=== PATIENT | male | born 1970 | race Caucasian/White ===

== ENCOUNTER → 2016-03-18 | Outpatient (CLI) | payer OTHER ==
[~2016-03-18] MED LIST: DRIS50002 PO; GABA600T PO; LIDOCAINE 1% SDV INJ 30 ML VIAL As Ordered ONE; MELO7.5T6 PO; MIDAZOLAM INJ 2 MG/2 ML VIAL (J2250) As Ordered ONE; SULF500TA PO; VENL150C43 PO; VITA50TA43 PO; ZONI50CA3 PO; fentaNYL 100 MCG/2 ML INJECTION (J3010) As Ordered ONE
[2016-03-18 15:49] LABS: GLUCOSE CSF 61 MG/DL (40-75)
[2016-03-18 16:03] LABS: RBC CSF AUTO 1 /mm3 (0-0); WBC CSF AUTO 0 /mm3 (0-10)
[2016-03-18 16:05] LABS: APPEARANCE, CSF CLEAR (CLEAR); COLOR, CSF COLORLESS (COLORLESS); CSF DIFF IF INDICATED? NO (NO); CSF TUBE# CELL CNT TUBE 3
[2016-03-18 16:06] LABS: CSF DILUENT LOT # 6053
[2016-03-19 08:41] LABS: CSF GROUP B STREP NEGATIVE (NEGATIVE); CSF H. INFLUENZA NEGATIVE (NEGATIVE); CSF N MENINGITIDIS ACYW135 NEGATIVE (NEGATIVE); CSF STREP PNUEMO NEGATIVE (NEGATIVE)
--- NOTE | 2016-03-28 23:54 | ECWPNPC ---
PATIENT NAME: GERMAIN JIM : 1970 GENDER: MALE VISIT DATE: 03/18/2016 DISCHARGE DATE: 03/18/16 1534 VISIT LOCKED DATE TIME: PHYSICIAN: KHALIF HOOVER RESOURCE: KHALIF HOOVER REASON FOR APPOINTMENT 1. SPINAL TAP MS PROTOCOL CURRENT MEDICATIONS NONE ASSESSMENTS PSEUDOTUMOR CEREBRI. TREATMENT OTHERS NOTES: NOTES: SPINAL TAP WITH IV SEDATION - PLEASE SEE MEDITECH. PROCEDURE CODES 65067 MOD SED SAME PHYS/QHP EA FOLLOW UP F/UP WITH NEUROLOGIST/CALL NEEDED ELECTRONICALLY SIGNED BY KHALIF HOOVER MD ON 03/28/2016 AT 07:49 PM EST DISCLAIMER : THIS IS A VISIT SUMMARY EXTRACTED FROM THE [employer] CHART. IT IS NOT A COPY OF THE [employer] PROGRESS NOTE. MTDD
== END ==
LOC: M PAIN 13:00
PROVIDERS: ATTEND Anesthesiology
DX: G93.9 Disorder of brain, unspecified (principal)
CPT/HCPCS: 36415; 62270; 82784; 82945; 83916; 84157; 87015; 87070; 87102; 87205; 87252; 87802; 87899; 88108; 88313; 89050; 99152; 99153; J2250; J3010

== ENCOUNTER 2016-10-06 15:36 | Observation (INO) | payer OTHER ==
[~2016-10-06] VITALS: Ht 188 cm; Wt 118.7 kg
[~2016-10-06 15:36] MED LIST changes: -LIDOCAINE 1% SDV INJ 30 ML VIAL As Ordered ONE; -MELO7.5T6 PO; +MELO7.5T7 PO; -MIDAZOLAM INJ 2 MG/2 ML VIAL (J2250) As Ordered ONE; -fentaNYL 100 MCG/2 ML INJECTION (J3010) As Ordered ONE
[2016-10-06] MEDS ORDERED: COLA100C5 PO (16:00)
[2016-10-06] MEDS ORDERED: HALO0.052 TOP (16:00)
[2016-10-06] MEDS ORDERED: RANI15TA PO (16:00)
[2016-10-06] MEDS ORDERED: ASPI325T24 PO (16:00)
[2016-10-06] MEDS ORDERED: MULTCAP11 PO (16:00)
[2016-10-06] MEDS ORDERED: ALBU17IN INH (16:00)
--- NOTE | 2016-10-06 16:38 | REP ---
Head CT without contrast: History: CVA. Comparison study: October 25, 2015. CT findings: Bone window settings demonstrate an intact bony calvarium. There is no evidence of skull fracture or incidental bony calvarial lesion. The visualized paranasal sinuses appear clear. No intraorbital abnormality is seen. On soft tissue window setting images; the lateral, third, and fourth ventricles are normal in size and position. Sanchez-white differentiation pattern is normal above and below the tentorium. There are is no evidence of intracranial hemorrhage. No mass, edema, infarction, or midline shift is seen. No extra-axial fluid collection is appreciated. Impression: Negative noncontrast head CT. Signed by Vazquez Hutchinson MD 10/06/2016 04:30 P
--- NOTE | 2016-10-06 17:05 | REP ---
Chest x-ray: Single view: History: CVA. Comparison chest x-ray: 12/20/2007. Findings: EKG monitoring electrodes overlie the chest. The lungs are well inflated and clear. Heart is not enlarged. Pulmonary vasculature is not increased. No significant bony abnormality is seen. Impression: No active disease. Signed by Vazquez Hutchinson MD 10/07/2016 10:06 A
[2016-10-06 18:05] LABS: BASO % 0.4 % (0.0-1.0); EOS # 0.2 K/mm3 (0.0-0.50); EOS % 2.7 % (0.0-3.0); LARGE UNSTAINED CELL # 0.1 K/mm3 (0.0-0.4); LARGE UNSTAINED CELL % 1.5 % (0.0-4.0); LYMPH # 2.2 K/mm3 (1.5-4.5); LYMPH % 27.3 % (24.0-44.0); MEAN CORPUSCULAR HEMOGLOBIN 31.1 pg (27.0-33.0); MEAN CORPUSCULAR HGB CONC 32.6 g/dl (32.0-36.5); MEAN CORPUSCULAR VOLUME 95.5 fl (80.0-96.0); MONO # 0.4 K/mm3 (0.0-0.8); MONO % 4.3 % (0.0-5.0); NEUTROPHILS # 5.2 K/mm3 (1.8-7.7); NEUTROPHILS % 63.8 % (36.0-66.0); PLATELET COUNT, AUTOMATED 252 k/mm3 (150-450); RED CELL DISTRIBUTION WIDTH 13.6 % (11.5-14.5); WHITE BLOOD COUNT 8.2 K/mm3 (4.0-10.0)
[2016-10-06 18:13] LABS: INR 0.94
[2016-10-06 18:38] LABS: ANION GAP 10 MEQ/L (8-16); BLOOD UREA NITROGEN 12 MG/DL (7-18); CALCIUM LEVEL 8.9 MG/DL (8.5-10.1); CARBON DIOXIDE LEVEL 26 MEQ/L (21-32); CHLORIDE LEVEL 107 MEQ/L (98-107); CREATININE FOR GFR 0.84 MG/DL (0.70-1.30); GLOMERULAR FILTRATION RATE > 60.0 (>60); GLUCOSE, FASTING 85 MG/DL (70-105); POTASSIUM SERUM 3.8 MEQ/L (3.5-5.1); SODIUM LEVEL 143 MEQ/L (136-145)
[2016-10-06] MEDS ORDERED: VITA10006 PO (19:46)
[2016-10-06] MEDS ORDERED: VITA500T3 PO (19:46)
[2016-10-06] MEDS ORDERED: FERR1TAB8 PO (19:46)
[2016-10-06] MEDS ORDERED: ZONI100C2 PO (19:46)
[2016-10-06] MEDS ORDERED: VITMTA PO (19:46)
[2016-10-06] MEDS ORDERED: PYRI100T2 PO (19:46)
[2016-10-06] MEDS ORDERED: OXYC-517 PO (19:46)
[2016-10-06] MEDS ORDERED: SULF500T2 PO (19:46)
[2016-10-06] MEDS ORDERED: TYLE325T5 PO (19:46)
[2016-10-06 19:48] LABS: MAGNESIUM LEVEL 2.4 MG/DL (1.8-2.4)
[2016-10-06] MEDS ORDERED: ALBUTEROL 90 MCG/ACT 8GM HFA INHALER INH PRN (20:15)
[2016-10-06] MEDS ORDERED: HALOBETASOL PROPIONATE 0.05% TOP PRN (20:15)
[2016-10-06] MEDS ORDERED: ONDANSETRON 4MG/2ML VIAL (J2405) IV PRN (20:15)
[2016-10-06] MEDS ORDERED: oxyCODONE 5MG TAB PO PRN (20:15)
[2016-10-06] MEDS ORDERED: ACETAMINOPHEN TAB 650MG DOSE (2X325MG) PO PRN (20:15)
--- NOTE | 2016-10-06 22:10 | REPUSA ---
CLINICAL HISTORY: APHASIA SENSATION LOSS/WEAKNESS RUE TECHNIQUE: MRI of the brain was performed without administration of intravenous contrast material. T1 spine echo, T2 fast spin echo, DWI and FLAIR sequences were obtained in sagittal, axial and coronal planes. FINDINGS: The sella and parasellar regions are unremarkable in appearance. The corpus callosum and cerebellar t onsils are of normal configuration and position. There are no intra or extra-axial collections. There is no mass effect or midline shift. There is no evidence of hematoma formation. There is no hydrocep halus. There is no restricted diffusion noted. The brain stem shows no mass effects, infarcts or hemorrhage. There are no cerebellopontine tumors. T he acoustic nerves are symmetrical. No cerebellar intra-axial pathology delineated. The fourth ventri amador and aqueduct are normal. No abnormalities of the optic nerves are identified. There is no evidenc e of atrophic or degenerative changes. No dural or subdural masses or collections are detected. The visualized arterial structures demonstrate normal appearing flow voids. The VII and VIII nerve bu ndles are visualized and are unremarkable in appearance. Several foci of T2/FLAIR hyperintensity are noted in the bilateral periventricular and subcortical wh ite matter. The foci measure between 1 and 3 mm in diameter. The foci are nonspecific, however early demyelinating disease, vasculitis or migraine headaches may have this presentation. Clinical correlat ion and follow-up in six months is recommended. IMPRESSION: Nonspecific foci of T2/FLAIR hyperintensity in the periventricular and subcortical white matter as de scribed and could be related to demyelinating disease, vasculitis or migraine headaches. Clinical correlation and follow-up with contrast enhanced study in six months is recommended. Thank you for your kind referral of this patient.
--- NOTE | 2016-10-06 22:20 | REPUSA ---
CLINICAL HISTORY: HX OF ANEURYSM OF THE M1 FRONTAL LOBE AND POSSIBLE TUMOR BEHIND RT EYE, TODAY PT FE LT RT ARM NUMBNESS, ALONG WITH SLURRED SPEECH A MIN OF A BLACKOUT AND SUDDEN HEADACHE ON THE TOP OF H IS HEAD TECHNIQUE: Three dimensional [id number] angiography is performed of the [place]. The jennifer dy was performed without IV contrast agent. FINDINGS: The supraclinoid portions of the internal carotid arteries are of normal shape. The normal bifurcation is seen. The middle cerebral arteries are unremarkable in appearance. The posterior circu lation is visualized and shows no evidence of occlusion or aneurysm formation. The basilar tip is see n and shows no aneurysm formation. There is no evidence of beading to suggest vasculitis. IMPRESSION: MRA of the [place] is within normal limits. If clinically warranted consider follow-up with CT or conventional angiography. Thank you for your kind referral of this patient.
[2016-10-06] MEDS: sulfaSALAzine 500 MG TABEC PO SCH (22:57)
[2016-10-06] MEDS: FAMOTIDINE 20 MG TAB PO SCH (22:57)
[2016-10-06] MEDS: ASPIRIN ENTERIC 325 MG TAB PO SCH (22:57)
[2016-10-06] MEDS: GABAPENTIN 300 MG CAP PO SCH (22:57)
[2016-10-06] MEDS: FERROUS SULFATE 325MG TAB PO SCH (22:58)
[2016-10-06] MEDS: DOCUSATE SODIUM 100 MG CAP PO SCH (22:58)
[2016-10-06] MEDS: ZONISAMIDE 100 MG CAP (ZONEGRAN) PO SCH (22:58)
[2016-10-07 00:41] VITALS: BP 122/68
[2016-10-07 04:00] VITALS: BP 93/57
[2016-10-07 07:36] LABS: MEAN CORPUSCULAR HEMOGLOBIN 31.7 pg (27.0-33.0); MEAN CORPUSCULAR HGB CONC 33.4 g/dl (32.0-36.5); MEAN CORPUSCULAR VOLUME 94.7 fl (80.0-96.0); RED CELL DISTRIBUTION WIDTH 13.8 % (11.5-14.5); WHITE BLOOD COUNT 6.8 K/mm3 (4.0-10.0)
[2016-10-07 07:50] LABS: ANION GAP 6 MEQ/L (8-16); BLOOD UREA NITROGEN 14 MG/DL (7-18); CALCIUM LEVEL 8.8 MG/DL (8.5-10.1); CARBON DIOXIDE LEVEL 27 MEQ/L (21-32); CHLORIDE LEVEL 111 MEQ/L (98-107); CHOLESTEROL LEVEL 162 MG/DL (<200); CREATININE FOR GFR 0.93 MG/DL (0.70-1.30); GLOMERULAR FILTRATION RATE > 60.0 (>60); GLUCOSE, FASTING 104 MG/DL (70-105); SODIUM LEVEL 144 MEQ/L (136-145); TRIGLYCERIDES LEVEL 110 MG/DL (<150)
[2016-10-07] MEDS: DOCUSATE SODIUM 100 MG CAP PO SCH (08:46)
[2016-10-07] MEDS: GABAPENTIN 300 MG CAP PO SCH ×2 (08:46→17:02)
[2016-10-07] MEDS: FAMOTIDINE 20 MG TAB PO SCH (08:46)
[2016-10-07] MEDS: FERROUS SULFATE 325MG TAB PO SCH (08:46)
[2016-10-07] MEDS: ZONISAMIDE 100 MG CAP (ZONEGRAN) PO SCH (08:48)
[2016-10-07] MEDS: ASPIRIN ENTERIC 325 MG TAB PO SCH (08:48)
[2016-10-07] MEDS: sulfaSALAzine 500 MG TABEC PO SCH (08:49)
[2016-10-07] MEDS ORDERED: ASCORBIC ACID 500 MG TAB PO SCH (09:00)
[2016-10-07] MEDS ORDERED: CYANOCOBALAMIN 500 MCG TAB PO SCH (09:00)
[2016-10-07] MEDS ORDERED: MULTIVITAMINS/MINERALS THERAP 1 TAB PO SCH (09:00)
[2016-10-07] MEDS ORDERED: PYRIDOXINE 50 MG TAB PO SCH (09:00)
[2016-10-07] MEDS ORDERED: VENLAFAXINE **XR** 75MG CAPSULE PO SCH (09:00)
--- NOTE | 2016-10-07 13:17 | HPE ---
DATE OF ADMISSION: 10/06/2016 TIME PATIENT WAS SEEN: 0100 PRIMARY CARE PROVIDER: Dr. Tali Meza NEUROLOGIST: Dr. Kern CHIEF COMPLAINT: Loss of balance with right sided numbness and tingling and headache. HISTORY OF PRESENT ILLNESS: 45-year-old male with past medical history of migraine headache, last one was six months ago, aneurysm in the brain, psoriatic arthritis, history of seizure, and remote history of psychiatric disease who presented with transient ischemic attack-like symptoms. Per patient, yesterday around 2:30 p.m., he was watching his doing vacuum outside and he was sitting about 15 minutes and then he stood up and he lost balance. At the same time, he lost his vision and his right hand also got tingling and numb and he also became confused and could not form words when he tried to talk with his . He also had a headache and the symptoms lasted for a few hours and were resolved by the time I saw the patient. Currently, the patient denies any headaches, any fever or chills, any chest pain, trouble breathing, abdominal pains, nausea, vomiting, diarrhea, constipation, any problem with urination, blood in the urine or stool. The patient has been following with Dr. Kern outpatient for a 1.6 mm aneurysm at the M1 frontal lobe of the brain per patient. He also had a history of seizure, last one was a few weeks ago, and his medication was changed afterward. In addition, he has been also following with a neurosurgeon to evaluate his aneurysm. ALLERGIES: Denies. HOME MEDICATIONS (including): - Tylenol 650 mg one tablet by mouth every 4 hours as needed - Ventolin 2 puffs inhalation every 4 hours as needed - vitamin C 1000 mg one tablet by mouth daily - aspirin 325 mg one tablet by mouth twice a day - vitamin B12 500 mcg one tablet by mouth daily - Colace 100 mg one tablet by mouth twice a day - ferrous sulfate 325 mg one tablet by mouth twice a day - gabapentin 600 mg one tablet by mouth three times a day - halobetasol one drop topically twice a day as needed for psoriasis - meloxicam 7.5 mg one tablet by mouth twice a day - multivitamin one tablet by mouth daily - oxycodone 10 mg one tablet by mouth every 4 hours as needed - oxycodone 5 mg by mouth every 4 hours as needed - pyridoxine 100 mg one tablet by mouth daily - Zantac one tablet by mouth twice a day - sulfasalazine 1500 mg one tablet by mouth twice a day - venlafaxine 150 mg by mouth daily - vitamin D 50,000 units one tablet by mouth every month - zonisamide 100 mg by mouth twice a day PAST MEDICAL HISTORY (including): 1. Migraine headache six months ago. 2. Brain aneurysm 1.6 mm at M1 region of the frontal lobe of the brain. 3. Psoriatic arthritis. 4. History of seizure. 5. Iron deficiency. 6. Chronic pains. 7. Remote history of psychiatric disease. PAST SURGICAL HISTORY (including): 1. Bilateral hip replacement due to osteoarthritis this year, one in May and one in July. SOCIAL HISTORY: The patient denies any smoking, drinking or recreational drug use. The patient lives with his . The patient has six birds, six cats and two dogs. FAMILY HISTORY: The patient's father had heart disease in his 50s. REVIEW OF SYSTEMS: GENERAL: The patient denies any recent traveling or sick contact. Denies any weight changes. Denies fever or chills. HEENT: Denies any change of vision, hearing or taste currently; however, before he did have a loss of vision and also had trouble speaking. CARDIOVASCULAR: Denies any chest pain, trouble breathing. GASTROINTESTINAL (GI): Denies any abdominal pains, nausea, vomiting, diarrhea or constipation. PULMONARY: Denies any shortness of breath. GENITOURINARY (): Denies any dysuria, urinary urgency, blood in the urine. MUSCULOSKELETAL: Admits to osteoarthritis, status post bilateral hip replacement. Admits to chronic pain. ENDOCRINE: Denies any heat or cold intolerance. HEMATOLOGY/ONCOLOGY: Denies any ease of bruising or any bleeding anywhere. NEUROLOGIC: Admits to similar symptoms in the past and was diagnosed with migraine six months ago; however, he has not had migraine since. Also admits to history of seizure. PSYCHIATRIC: Denies any anxiety or depression; however, on review of medical record he did have a psychiatric disorder in the remote past. PHYSICAL EXAMINATION: VITAL SIGNS: Temperature 98.7, pulse 82, respirations 18, blood pressure 125/74 , oxygen satting 97% on room air. GENERAL: The patient is a pleasant, middle aged male who was alert, awake and oriented times three and does not appear to be in distress, lying comfortably in bed with the head elevated at 30 degrees. HEENT: Normocephalic, atraumatic. Extraocular movements intact. Mucous moist. Neck supple. No neck lymphadenopathy. Pupils equal round and reactive to light. Eyebrow raise equal bilaterally. Smell was symmetrical. Tongue protruding midline. Sensations were intact bilaterally. CARDIOVASCULAR: Regular rate and rhythm. Normal S1, S2. No murmurs. LUNGS: Clear to auscultate bilaterally. No wheeze, rales or rhonchi. ABDOMEN: Positive bowel sounds. Soft. Nontender. Nondistended. No peritoneal signs. EXTREMITIES: No edema, clubbing or cyanosis. SKIN: Warm and dry. NEUROLOGIC: Cranial nerves II-XII intact. No focal neurological deficit noted. Muscle strength was 5/5 in bilateral lower extremities. The patient does have significant pain in the bilateral lower extremities due to recent hip replacement. LABORATORIES: WBC 8.2, hemoglobin 12.7, hematocrit 38.8 with a platelet count of 252 and MCV of 95.5. Sodium 143, potassium 3.8, chloride 107, bicarbonate 26, anion gap 10, BUN 12, creatinine 0.84, GFR greater than 60, fasting glucose 85, calcium 8.9, magnesium 2.4, CK 47, CK-MB 1.4, troponin less than 0.0.2. Coags show PT of 12.7, INR 0.94, and PTT 30. The patient's salicylate was 3. Acetaminophen was less than 2. ETOH was less than 0.003. There is no culture. The patient had a CT of the head without contrast in the emergency room that shows negative non-contrast CT of head. The patient had a portable chest x-ray in the emergency room that shows no active disease. He also had a MRA of the brain that shows within normal limits. He had a MRI of the brain that shows nonspecific foci of T2 flare hyperintensity in the periventricular and the subcortical white matter as described. Could be related to demyelinating disease, vasculitis, migraine headaches. ASSESSMENT AND PLAN: 45-year-old male with past medical history of migraine headache, aneurysm, seizure disorder, psoriatic arthritis, chronic pain, and gastroesophageal reflux disease, who presented with: 1. Transient ischemic attack like symptoms with history of migraine. Neurology , Dr. Rojo, has been consulted. Will follow his recommendation. At this point, will continue patient's home medications, aspirin 325 mg by mouth twice a day, and continue neurologic checks every [address] patient on seizure and fall precaution. Continue physical therapy (PT) and occupational therapy (OT). Continue to monitor the patient. 2. History of migraine. The patient's episode this time was similar to the last time when he was diagnosed with migraine. Will follow Dr. Rojo's recommendation. 3. Psoriatic arthritis. Continue home medication. 4. History of seizure. Continue home medications with gabapentin and also zonisamide. Continue patient on seizure precaution. 5. Deep vein thrombosis (DVT) prophylaxis. On SCD and sequentials. The patient is ambulatory. DISPOSITION: Will follow Dr. Rojo's recommendations and continue PT, OT. The patient has been discussed with the attending doctor, Dr. Nguyen. My preceptor for this patient encounter was Dr. Gerardo Nguyen. The preceptor was physically present in the building during the encounter and was fully available. As needed, all aspects of the patient interview, examination, medical decision making process, and medical care plan development were reviewed and approved by the preceptor. The preceptor is aware and concurs with the plan as stated in the body of this note and will attest to such by his/her cosignature. JULIO
[2016-10-07 13:20] VITALS: BP 133/77
[2016-10-07 16:00] VITALS: BP 129/62
--- NOTE | 2016-10-07 19:16 | IPN ---
DATE: 10/07/2016 SUBJECTIVE: Patient is seen and examined in the emergency holding area for the progressive care unit (PCU). Per patient, since admission there is no recurrence of his right-sided numbness and tingling and the headache. The episode only lasted for a few minutes and it resolved spontaneously. At the time, patient was noted to have extremity weakness and numbness and tingling. Patient also stated his bilateral vision was also being affected. No similar episode has occurred in the past. OBJECTIVE: VITAL SIGNS: Temperature is 98.4, pulse is 58, respiratory rate 18, blood pressure 131/81, pulse oximetry 96% in room air. GENERAL: No sign of acute distress, alert and oriented times three. HEENT: Normocephalic, atraumatic. Extraocular motors grossly intact. CARDIOVASCULAR: Positive S1, S2, regular rate. LUNGS: Clear to auscultation bilaterally. ABDOMEN: Soft, nontender, nondistended. Bowel sounds present. No rebound. No guarding. EXTREMITIES: No edema. No sign of cyanosis. NEUROLOGICAL: No neurological deficit detected. Muscle strength 5/5. LABORATORY DATA: WBC 6.8, hemoglobin 11.9, hematocrit 35.6, platelet count is 213. Sodium is 144, potassium 4, chloride 111, carbon dioxide 27, creatinine 0.93, GFR greater than 60, fasting glucose 104, calcium 8.8, triglycerides 110, total cholesterol 162, LDL 108, HDL 32. ASSESSMENT AND PLAN: 1. Acute left upper extremity numbness and weakness with bilateral vision loss. Symptoms resolved within 10-15 minutes spontaneously. Differential includes transient ischemic attack (TIA) versus migraine headache. MRI of the brain was performed which showed finding may suggest demyelinating disease, vasculitis, or migraine headaches. Neurologist, Dr. Rojo, has been consulted. We appreciate his recommendations. At the moment, patient will be monitored on the telemetry floor. Continue with neurologic checks every 4 hours. At this moment, patient is on aspirin. 2. History of migraine headaches. 3. Brain aneurysm 1.6 mm in the frontal lobe. Patient has established with neurosurgery. Possible surgical intervention will be discussed and arranged in the future. 4. Psoriatic arthritis. 5. History of seizures. 6. Deep venous thrombosis (DVT) prophylaxis. On thromboembolism deterrents (TEDs) and sequential compression device.
--- NOTE | 2016-10-08 08:39 | ECGEPIP ---
Stationary ECG Study [facility] - ED Test Date: 2016-10-06 Pat Name: GERMAIN JIM Department: Room: - Gender: M Insurance Claims Supervisor: tk : 1970 Requested By: Briana Rashid Order Number: [id number] Reading MD: Briana Rashid Measurements Intervals [place] Rate: 68 P: 47 ID: [id number] QRS: 34 QRSD: 99 T: 56 QT: 389 QTc: 415 Interpretive Statements SINUS RHYTHM NO PRIOR FOR COMPARISON Electronically Signed On 10-08-2016 8:39:06 EDT by Briana Rashid
--- NOTE | 2016-10-10 12:43 | CR ---
DATE OF CONSULTATION: 10/07/2016 REASON FOR CONSULTATION: Sudden right-sided numbness, tingling of the face along with aphasia and right upper extremity weakness. Patient is a 45-year-old male with past medical history significant for occipital seizures, intracranial aneurysm nonruptured, presenting with sudden symptom of aphasia and right upper extremity weakness lasting several minutes. The patient states that he was sitting outside in his home, he suddenly got up, felt very lightheaded and dizzy, and then started to feel confused, started walking towards his house, tried speak to his , could not get the words out and his right arm felt heavy. The patient states that the symptoms resolved on their own. While in the hospital, he had a mild headache. The patient does not have a history of migraine headaches. He had a similar incident approximately 6 months ago when he developed very mild headache and paresthesias of his right scalp. The patient states that his symptoms this time lasted a few hours. He has been on aspirin 325 mg daily, which he was taking recently due to having hip replacement. Due to the patient being on aspirin while having the symptom, I would recommend that he continue the full-dose aspirin. He does use gabapentin and zonisamide which can cause side effects of lightheadedness and dizziness, although a transient ischemic attack (TIA) cannot entirely be excluded. The patient had recently been followed by Dr. Monico Beck within the last few weeks for his 1.6 mm aneurysm at the M1 region of the frontal lobe of the brain. The patient is not having any intervention done for that at this time. The patient did have an MRI of the brain while in the hospital and this did not reveal any acute stroke. The patient is willing to continue his aspirin and followup with Dr. Kern, his neurologist, as an outpatient. Next, at the present time the patient denies any further symptoms. He denies any headache, numbness, tingling or weakness, change in vision, balance, dizziness, vertigo. He denies any aphasia or dysarthria. ALLERGIES: None. HOME MEDICATIONS: - Tylenol 650 mg by mouth every 4 hours as needed for pain - Ventolin 2 puffs inhalation every 4 hours - vitamin C 1000 mg by mouth daily - aspirin 325 mg by mouth twice a day - vitamin B12 500 mcg by mouth daily - Colace 100 mg by mouth twice a day - ferrous sulfate 325 mg by mouth twice a day - gabapentin 600 mg by mouth three times a day - halobetasol one drop twice a day as needed for psoriasis - meloxicam 7.5 mg by mouth twice a day - multivitamin by mouth daily - oxycodone 10 mg every 4 hours as needed for severe pain - oxycodone 5 mg by mouth every 4 hours as needed for moderate pain - pyridoxine 100 mg by mouth daily - Zantac by mouth twice a day - sulfasalazine 1500 mg by mouth twice a day - venlafaxine 150 mg by mouth daily - vitamin D 50,000 international units by mouth every month - zonisamide 100 mg by mouth twice a day PAST MEDICAL HISTORY: An instant of a headache with right facial paresthesias six months ago, possible migraine. Brain aneurysm 1.6 mm at M1 region of the frontal lobe of the brain. Psoriatic arthritis. History of seizure. Iron deficiency. Chronic pain. Remote history of pancreatic disease. PAST SURGICAL HISTORY: Bilateral hip replacement due to osteoarthritis 2016, May and July. SOCIAL HISTORY: The patient denies use of tobacco, alcohol or illicit drugs. He is a former tobacco user currently uses dip. FAMILY HISTORY: Noncontributory. REVIEW OF SYSTEMS: 14-point review of systems obtained and is negative except as per history of present illness. PHYSICAL EXAMINATION: Blood pressure 133/77, pulse rate 76, respiratory rate is 14, temperature is 98.1 degrees Fahrenheit. Current height is 6 feet 2 inches. Current weight is 118.7 kg, oxygenation 98% on room air. The patient is alert, oriented to person, place and time. Speech and language comprehension are intact. Pupils are 3 mm round and reactive to light. Extraocular movements are intact in all directions. Sensation V1, V2, V3 is intact to light touch. No facial asymmetry to activation. Palate elevates symmetrically. Tongue is midline. No weakness of sternocleidomastoids bilaterally. There is no pronator drift. Strength is 5/5 including bilateral deltoids, biceps, triceps, handgrip, iliopsoas, quadriceps, anterior tibialis. Deep tendon reflexes are 2s throughout. Sensory is intact to light touch in all four extremities. Coordination normal [id number] without any ataxia, dysmetria. Romberg testing negative. Gait is normal. ASSESSMENT: 1. Highly suspect transient ischemic attack resulting in right upper extremity weakness with aphasia, lasting several hours and then resolving on its own. 2. History of occipital seizures, well controlled. 3. Remote history of migraine headaches. 4. 1.6 mm M1 segment aneurysm of the frontal lobe of the brain. PLAN 1. Continue aspirin 325 mg by mouth daily. 2. Optimize hypertension, hyperlipidemia. 3. Continue gabapentin 600 mg by mouth three times a day, zonisamide 100 mg by mouth twice a day. 4. Please followup with Dr. Monico Beck for management of intracranial aneurysm as scheduled. 5. Patient can followup with Dr. Kern as an outpatient in the [facility] Neurology office. The patient has stayed greater than 24 hours in the hospital after a possible TIA without any recurring symptoms. Telemetry monitoring did not reveal any atrial fibrillation. The patient will likely be discharged home this evening. The case was discussed with Dr. Pierre, the patient's current hospitalist.
== END 2016-10-07 20:12 | disposition home or self-care (01) ==
LOC: M ED 15:36 → M ED INP 19:40 → M ICU 10-07 13:20
PROVIDERS: ADMIT Internal Medicine; ATTEND Internal Medicine
DX: R20.0 Anesthesia of skin (principal); R53.1 Weakness; R47.01 Aphasia; H53.133 Sudden visual loss, bilateral; I67.1 Cerebral aneurysm, nonruptured; G40.802 Other epilepsy, not intractable, without status epilepticus; R51 Headache; L40.50 Arthropathic psoriasis, unspecified; D50.9 Iron deficiency anemia, unspecified; G89.29 Other chronic pain; K21.9 Gastro-esophageal reflux disease without esophagitis; Z79.899 Other long term (current) drug therapy; Z79.82 Long term (current) use of aspirin; F17.220 Nicotine dependence, chewing tobacco, uncomplicated

== ENCOUNTER → 2016-10-12 | Outpatient (REF) | payer OTHER ==
[~2016-10-12] MED LIST changes: +ALBU17IN INH; +ASPI325T24 PO; +COLA100C5 PO; +FERR1TAB8 PO; +HALO0.052 TOP; +MULTCAP11 PO; +OXYC-517 PO; +PYRI100T2 PO; +RANI15TA PO; +SULF500T2 PO; +TYLE325T5 PO; +VITA10006 PO; +VITA500T3 PO; +VITMTA PO; +ZONI100C2 PO
[2016-10-19 00:06] LABS: SJOGREN'S ANTI SS-A <0.2 AI (0.0-0.9); SJOGREN'S ANTI SS-B <0.2 AI (0.0-0.9)
== END ==
LOC: M LABNEURO 16:00
PROVIDERS: ATTEND Psychiatry & Neurology Neurology
DX: G45.9 Transient cerebral ischemic attack, unspecified (principal)